=== PATIENT | female | born 1980 | race Two or more races ===

== ENCOUNTER 2022-01-21 12:10 | Emergency (ER) | payer OTHER ==
[~2022-01-21] VITALS: Ht 167.6 cm; Wt 81.6 kg
[2022-01-21 12:56] VITALS: BP 156/94
[2022-01-21] MEDS ORDERED: IBUPROFEN 800 MG TAB PO ONE (13:30)
[2022-01-21] MEDS ORDERED: IBUP800T27 PO (14:37)
== END 2022-01-21 14:22 | disposition home or self-care (01) ==
LOC: ER 12:10
DX: S52.502A Unspecified fracture of the lower end of left radius, initial encounter for closed fracture (principal); W01.0XXA Fall on same level from slipping, tripping and stumbling without subsequent striking against object, initial encounter; Y93.89 Activity, other specified; Y92.89 Other specified places as the place of occurrence of the external cause; Y99.8 Other external cause status
CPT/HCPCS: 73110

== ENCOUNTER 2022-02-10 11:46 | Emergency (ER) | payer OTHER ==
[~2022-02-10] VITALS: Ht 167.6 cm; Wt 86.6 kg
[~2022-02-10 11:46] MED LIST: IBUP800T27 PO
[2022-02-10] MEDS ORDERED: KETOROLAC TROMETH 60MG/2ML VIAL IM ONE (14:00)
[2022-02-10 14:31] VITALS: BP 161/102
== END 2022-02-10 15:20 | disposition home or self-care (01) ==
LOC: ER 11:46
DX: S52.502D Unspecified fracture of the lower end of left radius, subsequent encounter for closed fracture with routine healing (principal); W01.0XXD Fall on same level from slipping, tripping and stumbling without subsequent striking against object, subsequent encounter
CPT/HCPCS: 73110; 96372; 99283; J1885

== ENCOUNTER 2022-02-28 05:33 | Emergency (ER) | payer OTHER ==
[~2022-02-28] VITALS: Ht 170.2 cm; Wt 82.0 kg
[2022-02-28 08:00] VITALS: BP 142/70
[2022-02-28] MEDS ORDERED: METH750T22 PO (08:07)
== END 2022-02-28 08:13 | disposition home or self-care (01) ==
LOC: ER 05:33
DX: S39.012D Strain of muscle, fascia and tendon of lower back, subsequent encounter (principal); I10 Essential (primary) hypertension; W01.0XXD Fall on same level from slipping, tripping and stumbling without subsequent striking against object, subsequent encounter
CPT/HCPCS: 72100

== ENCOUNTER 2023-03-16 10:20 | Emergency (ER) | payer OTHER ==
[~2023-03-16] VITALS: Ht 167.6 cm; Wt 101.6 kg
[2023-03-16 10:20] VITALS: BP 153/90; PULSE 97; RESP 16; TEMP 98; O2SAT 97
[~2023-03-16 10:20] MED LIST changes: +IBUP-1456 PO; -IBUP800T27 PO; +METH-1182 PO
[2023-03-16] MEDS ORDERED: DexAMETHasone SOD PHOS 10MG/1ML VIAL INJ IM ONE (13:15)
[2023-03-16] MEDS ORDERED: IBUP1TAB5 PO (13:15)
[2023-03-16] MEDS ORDERED: KETOROLAC TROMETH 60MG/2ML VIAL IM ONE (13:15)
[2023-03-16] MEDS ORDERED: CYCL-611 PO ×2 (13:15)
[2023-03-17] MEDS ORDERED: IBUP-1456 PO (10:41)
[2023-03-17] MEDS ORDERED: CYCL-611 PO (10:41)
== END 2023-03-16 15:25 | disposition home or self-care (01) ==
LOC: ER 10:20
DX: S43.402A Unspecified sprain of left shoulder joint, initial encounter (principal); S13.9XXA Sprain of joints and ligaments of unspecified parts of neck, initial encounter; I10 Essential (primary) hypertension; X50.0XXA Overexertion from strenuous movement or load, initial encounter; Y93.89 Activity, other specified; Y92.89 Other specified places as the place of occurrence of the external cause; Y99.8 Other external cause status
CPT/HCPCS: 72070; 73030; 96372; 99284; J1100; J1885

== ENCOUNTER 2023-03-23 16:25 | Emergency (ER) | payer OTHER ==
[~2023-03-23] VITALS: Ht 167.6 cm; Wt 100.5 kg
[~2023-03-23 16:25] MED LIST changes: +CYCL-611 PO; +IBUP1TAB5 PO
[2023-03-23 21:26] VITALS: BP 148/68; PULSE 99; RESP 18; TEMP 97.8; O2SAT 100
[2023-03-23] MEDS ORDERED: KETOROLAC TROMETH 60MG/2ML VIAL IM ONE (22:00)
== END 2023-03-23 22:06 | disposition home or self-care (01) ==
LOC: ER 16:25
DX: S46.912A Strain of unspecified muscle, fascia and tendon at shoulder and upper arm level, left arm, initial encounter (principal); S16.1XXA Strain of muscle, fascia and tendon at neck level, initial encounter; I10 Essential (primary) hypertension; X58.XXXA Exposure to other specified factors, initial encounter; Y93.89 Activity, other specified; Y92.89 Other specified places as the place of occurrence of the external cause; Y99.8 Other external cause status
CPT/HCPCS: 73030; 96372; 99283; J1885

== ENCOUNTER 2023-04-14 06:03 | Emergency (ER) | payer OTHER ==
[~2023-04-14] VITALS: Ht 167.6 cm; Wt 95.0 kg
[2023-04-14 07:13] VITALS: BP 126/87; PULSE 83; RESP 20; TEMP 98; O2SAT 99
[2023-04-14] MEDS ORDERED: KETOROLAC TROMETH 60MG/2ML VIAL ONE (07:24)
[2023-04-14] MEDS ORDERED: KETOROLAC TROMETH 60MG/2ML VIAL IM ONE (07:30)
[2023-04-14] MEDS ORDERED: IBUP-1456 PO (07:48)
[2023-04-14] MEDS ORDERED: LIDO5PAD8 EX (07:48)
== END 2023-04-14 07:50 | disposition home or self-care (01) ==
LOC: ER 06:03
DX: S29.012A Strain of muscle and tendon of back wall of thorax, initial encounter (principal); M24.9 Joint derangement, unspecified; I10 Essential (primary) hypertension; Z79.1 Long term (current) use of non-steroidal anti-inflammatories (NSAID); Z79.899 Other long term (current) drug therapy; X58.XXXA Exposure to other specified factors, initial encounter; Y93.89 Activity, other specified; Y92.89 Other specified places as the place of occurrence of the external cause; Y99.0 Civilian activity done for income or pay
CPT/HCPCS: 96372; 99283; J1885